=== PATIENT | male | born 1995 | race Caucasian/White ===

== ENCOUNTER 2023-10-01 14:30 | Emergency (ER) | payer SELFPAY ==
[2023-10-01 14:39] VITALS: BP 141/93; PULSE 135; RESP 16; TEMP 36.7; O2SAT 97; BMI 26.6
[2023-10-01 16:03] VITALS: PULSE 125; RESP 16; O2SAT 98
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
[2023-10-01 16:48] LABS: Basophils # 0.1 10^3/uL (0.0-0.1); Basophils % 0.5 %; Eosinophils # 0.1 10^3/uL (0.0-0.8); Eosinophils % 0.3 %; Hematocrit 46.1 % (37-53); Lymphocytes % 13.5 %; Mean Corpuscular HGB Conc 34.1 g/dL (30-55); Mean Corpuscular Hemoglobin 32.2 pg (27-33); Mean Corpuscular Volume 94.7 fl (82-101); Mean Platelet Volume 9.7 fL (7.4-10.4); Monocytes # 1.3 10^3/uL (0.2-0.9); Monocytes % 8.9 %; Neutrophils # 11.29 10^3/uL (1.8-7.7); Neutrophils % 76.5 %; Nucleated Red Blood Cells % 0 %; Platelet Count 312 10^3/cmm (157-399); Red Blood Count 4.87 10^6/uL (3.85-5.65); Red Cell Distribution Width 12.1 % (12.1-15.1); White Blood Count 14.79 10^3/uL (3.29-11.43)
[2023-10-01] MEDS: sodium chloride 0.9% 1,000 ML 999 ML IV ×2 (17:01→19:06)
[2023-10-01 17:09] LABS: Alanine Aminotransferase 19 U/L (0-41); Albumin Level 5.5 g/dL (3.5-5.2); Alkaline Phosphatase 79 U/L (40-130); Anion Gap 23.2 (5-19); Aspartate Amino Transferase 38 U/L (0-40); Blood Urea Nitrogen 22 mg/dL (6-20); Calcium 10.4 mg/dL (8.5-10.5); Carbon Dioxide 22 mmol/L (22-29); Chloride 96 mmol/L (98-107); Creatinine Clr Calc Pharmacy 78.3382; Globulin 3.1 g/dL (1.3-4.6); Glomerular Filtration Rate 60.3 mL/min (90-130); Glucose 90 mg/dL (65-115); Osmolality Calculated 287 mOsm/kg (285-295); Potassium 4.2 mmol/L (3.5-5.1); Sodium 137 mmol/L (136-145); Total Bilirubin 0.9 mg/dL (0.15-1.2); Total Protein 8.6 g/dL (6.6-8.7)
[2023-10-01 17:10] LABS: Creatine Phosphokinase 1787 U/L (39-308)
[2023-10-01 17:25] LABS: Charge for UA Resulting for Rev
[2023-10-01 17:48] LABS: Bilirubin Urine Negative (Negative); Blood Urine Negative (Negative); Glucose Urine UA Negative (Normal); Ketones Urine 3+ (Negative); Leukocyte Esterase Urine Negative (Negative); Nitrate Urine Negative (Negative); Protein Urine 2+ (Negative); Urine Appearance Cloudy (CLEAR); Urine Color Dark Yellow (Yellow); pH Urine 5.5 (5-7)
[2023-10-01 17:53] LABS: Bacteria Urine None Seen /hpf; Hyaline Casts Urine 4.95 /lpf; RBC Urine 0-2 /hpf (0-2); Squamous Epithelial Cell Urine 0-5 /hpf (0-5); WBC Urine 0-5 /hpf (0-5)
[2023-10-01 17:55] LABS: Amphetamines Screen Urine Negative (Negative); Barbiturates Screen Urine Negative (Negative); Benzodiazepines Screen Urine Negative (Negative); Cocaine Screen Urine Negative (Negative); Opiate Screen Urine Negative (Negative); PCP Screen Urine Negative (Negative); THC Screen Urine Positive (Negative)
[2023-10-01 17:58] LABS: Specific Gravity, Urine 1.036 (1.005-1.030)
[2023-10-01 18:00] VITALS: BP 108/45; PULSE 120; RESP 18; O2SAT 99
[2023-10-01] MEDS: ketorolac 60 mg/2 mL INJ 30 MG IVP (19:05)
[2023-10-01] MEDS: dexamethasone 10 mg/mL INJ IVP (19:05)
[2023-10-01 19:48] VITALS: BP 152/86; RESP 16; O2SAT 99
--- NOTE | 2023-10-06 09:03 | DCPLANNER ---
Sent ENT referral to Dr. Dwyer
--- NOTE | 2023-10-07 07:56 | DCPLANNER ---
Sent referral for Alysa blandon and to Dr Dwyer. However patient does not have a usable phone numbeer to contact patient-
== END 2023-10-01 19:55 | disposition home or self-care (01) ==
PROVIDERS: Emergency Provider Physician Assistant
DX: S02.2XXA Fracture of nasal bones, initial encounter for closed fracture (principal); E86.0 Dehydration; R00.0 Tachycardia, unspecified; S80.812A Abrasion, left lower leg, initial encounter; S80.811A Abrasion, right lower leg, initial encounter; S40.812A Abrasion of left upper arm, initial encounter; S40.811A Abrasion of right upper arm, initial encounter; V89.2XXA Person injured in unspecified motor-vehicle accident, traffic, initial encounter
CPT/HCPCS: 36415; 70450; 70486; 71045; 72125; 72170; 80053; 80306; 81003; 81015; 82550; 85025; 96361; 96374; 96375; 99285; J1100; J1885; J7030